=== PATIENT | male | born 1980 | race Caucasian/White ===

== ENCOUNTER 2017-09-11 01:55 | Inpatient (IN) | payer MEDICAID ==
[~2017-09-11] VITALS: Ht 190.5 cm; Wt 68.0 kg
[~2017-09-11 01:55] MED LIST: CLIN-79 PO; HYDR-569 PO; IBUP-1986 PO
[2017-09-11] MEDS ORDERED: TETanus/Pertussis (Acell)/Diphther VAC/PF (Tdap-Adult) 0.5ml syringe IMVAC ONE (04:00)
[2017-09-11] MEDS ORDERED: clindamycin-Cleocin 900mg/D5W 50 ML IV SCH ×2 (04:25→08:00)
[2017-09-11 04:59] LABS: BASOPHILS % (AUTO) 0.4 % (0-1); EOSINOPHILS # (AUTO) 0.2 X10'3 (0-0.9); EOSINOPHILS % (AUTO) 2.4 % (0-6); HEMATOCRIT 39.5 % (42.0-52.0); HEMOGLOBIN 13.2 g/dl (14.0-17.9); LYMPHOCYTES # (AUTO) 1.5 X10'3 (1.1-4.8); MEAN CORPUSCULAR HGB CONC 33.4 % (33.0-36.5); MEAN PLATELET VOLUME 8.4 FL (7.4-10.4); MONOCYTES # (AUTO) 0.7 X10'3 (0-0.9); MONOCYTES % (AUTO) 7.2 % (2-12); PLATELET COUNT 254 X10'3 (140-440); RED BLOOD COUNT 4.54 X10'6 (4.70-6.10); RED CELL DISTRIBUTION WIDTH 13.5 % (11.5-14.5); WHITE BLOOD COUNT 9.5 X10'3 (4.5-11.0)
[2017-09-11 05:14] LABS: ANION GAP 6 (8-16); BILIRUBIN,TOTAL 0.5 MG/DL (0.1-1.0); BLOOD UREA NITROGEN 12 MG/DL (7-18); CALCIUM 8.7 MG/DL (8.5-10.1); CHLORIDE 104 MMOL/L (99-107); POTASSIUM 4.3 MMOL/L (3.5-5.1); SODIUM 139 MMOL/L (135-145); TOTAL CARBON DIOXIDE 28.7 MMOL/L (24-32); TOTAL PROTEIN 7.9 G/DL (6.4-8.2); eGFR 84 ML/MIN
[2017-09-11 05:15] LABS: ALANINE AMINOTRANSFERASE 156 U/L (12-78); ALBUMIN 2.9 G/DL (3.4-5.0); ALBUMIN/GLOBULIN RATIO 0.6 (1.1-1.5); ALKALINE PHOSPHATASE 106 IU/L (46-116); ASPARTATE AMINO TRANSFERASE 80 U/L (10-37)
[2017-09-11 05:26] LABS: GLUCOSE 120 MG/DL (70-104)
[2017-09-11] MEDS ORDERED: magnesium 4gm in 100ml NS 100 ML IV PRN (09:10)
[2017-09-11] MEDS ORDERED: potassium Cl 40MEQ/NS 500ml 500 ML IV PRN ×2 (09:10)
[2017-09-11] MEDS ORDERED: magnesium hydroxide 30ml (MOM) UD suspension PO PRN (09:10)
[2017-09-11] MEDS ORDERED: mag hydrox/Alum hydrox/simeth 30ml oral suspension PO PRN (09:10)
[2017-09-11] MEDS ORDERED: magnesium Cl slow-release 64mg tablet PO PRN (09:10)
[2017-09-11] MEDS ORDERED: potassium Cl 20 mEq SR tablet PO PRN ×2 (09:10)
[2017-09-11] MEDS ORDERED: magnesium 2GM in 50ml NS 50 ML IV PRN (09:10)
[2017-09-11] MEDS ORDERED: morphine 2 MG/ML inj. syringe IV PRN (09:10)
[2017-09-11] MEDS: K and/or MAG REPLACEMENT MC SCH (09:10)
[2017-09-11] MEDS ORDERED: acetaminophen 325mg tablet PO PRN ×2 (09:10)
[2017-09-11] MEDS ORDERED: ondansetron/PF 4mg/2ml inj IV PRN (09:10)
[2017-09-11] MEDS: vancomycin/NS 1 GM ADD-VANTAGE 250 ML IV SCH ×2 (10:47→19:42)
[2017-09-11] MEDS: normal saline 1000ml 1,000 ML IV SCH ×3 (10:47→17:22)
[2017-09-11 11:34] LABS: HIV ANTIBODY 1&2 RAPID NON-REACTIVE (Neg)
[2017-09-11 11:50] LABS: CLARITY,URINE CLEAR (Clear); COLOR,URINE YELLOW (Yellow); GLUCOSE, URINE NEGATIVE (Neg); KETONES,URINE NEGATIVE (Neg); LEUKOCYTE ESTERASE ,URINE NEGATIVE (Neg); NITRITES, URINE NEGATIVE (Neg); OCCULT BLOOD,URINE NEGATIVE (Neg); PH,URINE 6.5 (4.8-8.0); PROTEIN,URINE 30 mg/dl (Neg)
[2017-09-11 11:55] LABS: UA COLLECTION TYPE URINAL
[2017-09-11 11:57] LABS: BACTERIA,URINE NONE SEEN /HPF (Neg); CAL OXALATE CRYSTALS 2+ /HPF (NEGATIVE); MUCUS STRANDS NONE SEEN /LPF (Neg); RBC,URINE 0-2 /HPF (0-2); SQUAMOUS EPITHELIAL CELL,UR FEW /LPF (FEW); WBC,URINE 0-4 /HPF (0-4)
[2017-09-11 12:11] LABS: URINE AMPHETAMINE SCREEN POSITIVE (Neg); URINE BARBITUATE SCREEN NEGATIVE (Neg); URINE BENZODIAZEPINES SCREEN NEGATIVE (Neg); URINE CANNABINOID SCREEN POSITIVE (Neg); URINE COCAINE SCREEN NEGATIVE (Neg); URINE METHADONE SCREEN NEGATIVE (Neg); URINE OPIATE SCREEN NEGATIVE (Neg); URINE PHENCYCLIDINE SCREEN NEGATIVE (Neg)
[2017-09-11] MEDS: clindamycin-Cleocin 900mg/D5W 50 ML IV SCH ×2 (13:35→22:16)
[2017-09-11] MEDS: piperacillin/tazo 3.375gm/50ml 50 ML IV SCH ×2 (15:29→21:22)
[2017-09-11 16:30] VITALS: BP 123/64
[2017-09-11] MEDS: HYDROcodone/acetaminophen 5mg/325mg tablet PO PRN ×2 (17:14→22:28)
[2017-09-11] MEDS: lactobacillus rhamnosus 10,000 MMU CELLS/CAPSULE PO SCH (17:14)
[2017-09-11 18:00] VITALS: BP 116/54
[2017-09-11 22:00] VITALS: BP 117/65
[2017-09-12] MEDS: piperacillin/tazo 3.375gm/50ml 50 ML IV SCH ×4 (02:29→21:25)
[2017-09-12] MEDS: HYDROcodone/acetaminophen 5mg/325mg tablet PO PRN ×4 (02:30→21:25)
[2017-09-12] MEDS: vancomycin/NS 1 GM ADD-VANTAGE 250 ML IV SCH ×4 (03:13→19:29)
[2017-09-12] MEDS: clindamycin-Cleocin 900mg/D5W 50 ML IV SCH ×3 (04:41→21:56)
[2017-09-12] MEDS: normal saline 1000ml 1,000 ML IV SCH ×3 (04:44→21:56)
[2017-09-12 06:06] LABS: BASOPHILS % (AUTO) 0.4 % (0-1); EOSINOPHILS # (AUTO) 0.3 X10'3 (0-0.9); EOSINOPHILS % (AUTO) 5.7 % (0-6); HEMATOCRIT 35.3 % (42.0-52.0); HEMOGLOBIN 11.9 g/dl (14.0-17.9); LYMPHOCYTES # (AUTO) 1.4 X10'3 (1.1-4.8); LYMPHOCYTES % (AUTO) 28.7 % (21-51); MEAN CORPUSCULAR HEMOGLOBIN 29.1 PG (27.0-31.0); MEAN CORPUSCULAR HGB CONC 33.8 % (33.0-36.5); MEAN CORPUSCULAR VOLUME 86.1 FL (78-98); MEAN PLATELET VOLUME 8.7 FL (7.4-10.4); MONOCYTES # (AUTO) 0.4 X10'3 (0-0.9); NEUTROPHILS # (AUTO) 2.7 X10'3 (1.8-7.7); NEUTROPHILS % (AUTO) 56.2 % (42-75); PLATELET COUNT 196 X10'3 (140-440); RED BLOOD COUNT 4.11 X10'6 (4.70-6.10); RED CELL DISTRIBUTION WIDTH 13.1 % (11.5-14.5); WHITE BLOOD COUNT 4.8 X10'3 (4.5-11.0)
[2017-09-12 06:27] VITALS: BP 91/42
[2017-09-12 06:32] LABS: ALANINE AMINOTRANSFERASE 128 U/L (12-78); ALBUMIN 2.3 G/DL (3.4-5.0); ALBUMIN/GLOBULIN RATIO 0.5 (1.1-1.5); ALKALINE PHOSPHATASE 86 IU/L (46-116); ANION GAP 8 (8-16); ASPARTATE AMINO TRANSFERASE 65 U/L (10-37); BILIRUBIN,TOTAL 0.4 MG/DL (0.1-1.0); BLOOD UREA NITROGEN 11 MG/DL (7-18); CALCIUM 8.1 MG/DL (8.5-10.1); CHLORIDE 107 MMOL/L (99-107); GLUCOSE 107 MG/DL (70-104); MAGNESIUM 1.7 MG/DL (1.5-2.4); PHOSPHORUS 4.3 MG/DL (2.3-4.5); POTASSIUM 4.4 MMOL/L (3.5-5.1); SODIUM 141 MMOL/L (135-145); TOTAL CARBON DIOXIDE 25.6 MMOL/L (24-32); TOTAL PROTEIN 6.9 G/DL (6.4-8.2); eGFR 84 ML/MIN
[2017-09-12] MEDS: K and/or MAG REPLACEMENT MC SCH (08:00)
[2017-09-12] MEDS: enoxaparin 40mg/0.4ml syringe SUBCUT SCH (09:00)
[2017-09-12] MEDS ORDERED: mupirocin 2% ointment 22GM TP STA (09:38)
[2017-09-12 10:00] VITALS: BP 113/58
[2017-09-12] MEDS ORDERED: VANCOMYCIN LEVEL IV ONE (10:30)
[2017-09-12] MEDS: lactobacillus rhamnosus 10,000 MMU CELLS/CAPSULE PO SCH ×2 (12:22→19:29)
[2017-09-12] MEDS: mupirocin 2% ointment 22GM TP SCH ×2 (16:46→21:27)
[2017-09-12 18:00] VITALS: BP 118/62
[2017-09-12 22:00] VITALS: BP 110/58
[2017-09-13] MEDS: piperacillin/tazo 3.375gm/50ml 50 ML IV SCH ×4 (02:18→20:25)
[2017-09-13] MEDS: HYDROcodone/acetaminophen 5mg/325mg tablet PO PRN ×3 (02:22→16:45)
[2017-09-13] MEDS: vancomycin/NS 1 GM ADD-VANTAGE 250 ML IV SCH ×3 (02:49→18:46)
[2017-09-13] MEDS: clindamycin-Cleocin 900mg/D5W 50 ML IV SCH ×3 (04:56→21:08)
[2017-09-13 06:00] VITALS: BP 98/60
[2017-09-13 06:13] LABS: BASOPHILS % (AUTO) 0.7 % (0-1); EOSINOPHILS # (AUTO) 0.2 X10'3 (0-0.9); EOSINOPHILS % (AUTO) 5.9 % (0-6); HEMATOCRIT 36.1 % (42.0-52.0); HEMOGLOBIN 12.2 g/dl (14.0-17.9); LYMPHOCYTES # (AUTO) 1.2 X10'3 (1.1-4.8); LYMPHOCYTES % (AUTO) 28.5 % (21-51); MEAN CORPUSCULAR HEMOGLOBIN 29.1 PG (27.0-31.0); MEAN CORPUSCULAR HGB CONC 33.7 % (33.0-36.5); MEAN CORPUSCULAR VOLUME 86.1 FL (78-98); MEAN PLATELET VOLUME 8.2 FL (7.4-10.4); MONOCYTES # (AUTO) 0.4 X10'3 (0-0.9); NEUTROPHILS # (AUTO) 2.4 X10'3 (1.8-7.7); NEUTROPHILS % (AUTO) 55.9 % (42-75); PLATELET COUNT 212 X10'3 (140-440); RED BLOOD COUNT 4.19 X10'6 (4.70-6.10); RED CELL DISTRIBUTION WIDTH 13.3 % (11.5-14.5); WHITE BLOOD COUNT 4.3 X10'3 (4.5-11.0)
[2017-09-13 06:37] LABS: ALBUMIN 2.4 G/DL (3.4-5.0); ANION GAP 4 (8-16); BILIRUBIN,TOTAL 0.4 MG/DL (0.1-1.0); BLOOD UREA NITROGEN 10 MG/DL (7-18); BUN/CREATININE RATIO 8.3 (5.4-32.0); CALCIUM 8.1 MG/DL (8.5-10.1); CHLORIDE 105 MMOL/L (99-107); GLUCOSE 92 MG/DL (70-104); MAGNESIUM 1.7 MG/DL (1.5-2.4); PHOSPHORUS 4.4 MG/DL (2.3-4.5); POTASSIUM 4.7 MMOL/L (3.5-5.1); SODIUM 138 MMOL/L (135-145); TOTAL CARBON DIOXIDE 29.1 MMOL/L (24-32); eGFR 68 ML/MIN
[2017-09-13 06:38] LABS: ALANINE AMINOTRANSFERASE 130 U/L (12-78); ALBUMIN/GLOBULIN RATIO 0.5 (1.1-1.5); ALKALINE PHOSPHATASE 86 IU/L (46-116); ASPARTATE AMINO TRANSFERASE 76 U/L (10-37)
[2017-09-13] MEDS: K and/or MAG REPLACEMENT MC SCH (08:00)
[2017-09-13] MEDS: mupirocin 2% ointment 22GM TP SCH ×2 (08:55→20:27)
[2017-09-13] MEDS: enoxaparin 40mg/0.4ml syringe SUBCUT SCH (08:55)
[2017-09-13] MEDS: lactobacillus rhamnosus 10,000 MMU CELLS/CAPSULE PO SCH ×2 (08:55→16:45)
[2017-09-13 10:00] VITALS: BP 109/46
[2017-09-13] MEDS: normal saline 1000ml 1,000 ML IV SCH ×2 (11:08→21:15)
[2017-09-13 11:13] LABS: HBSAG SCREEN Negative (Negative); HEP A AB, IGM Negative (Negative); HEP B CORE AB, IGM Negative (Negative); HEPATITIS C ANTIBODY >11.0 s/co ratio (0.0-0.9)
[2017-09-13] MEDS ORDERED: morphine 5 MG/ML injection IV PRN (16:57)
[2017-09-13] MEDS: nicotine 14mg patch - 24hr TD SCH (17:45)
[2017-09-13 18:00] VITALS: BP 107/59
[2017-09-13 22:00] VITALS: BP 115/51
[2017-09-14] MEDS: piperacillin/tazo 3.375gm/50ml 50 ML IV SCH (01:41)
[2017-09-14] MEDS: HYDROcodone/acetaminophen 5mg/325mg tablet PO PRN ×4 (01:46→21:34)
[2017-09-14] MEDS: vancomycin/NS 1 GM ADD-VANTAGE 250 ML IV SCH ×3 (02:43→19:22)
[2017-09-14] MEDS: clindamycin-Cleocin 900mg/D5W 50 ML IV SCH ×3 (04:34→21:26)
[2017-09-14 06:00] VITALS: BP 117/70
[2017-09-14 07:07] LABS: BASOPHILS % (AUTO) 0.7 % (0-1); EOSINOPHILS # (AUTO) 0.2 X10'3 (0-0.9); EOSINOPHILS % (AUTO) 5.9 % (0-6); HEMATOCRIT 37.7 % (42.0-52.0); HEMOGLOBIN 12.8 g/dl (14.0-17.9); MEAN CORPUSCULAR HEMOGLOBIN 29.2 PG (27.0-31.0); MEAN CORPUSCULAR VOLUME 86.1 FL (78-98); MEAN PLATELET VOLUME 8.1 FL (7.4-10.4); MONOCYTES # (AUTO) 0.2 X10'3 (0-0.9); MONOCYTES % (AUTO) 6.3 % (2-12); NEUTROPHILS # (AUTO) 1.9 X10'3 (1.8-7.7); NEUTROPHILS % (AUTO) 57.1 % (42-75); PLATELET COUNT 210 X10'3 (140-440); RED BLOOD COUNT 4.39 X10'6 (4.70-6.10); RED CELL DISTRIBUTION WIDTH 13.1 % (11.5-14.5); WHITE BLOOD COUNT 3.4 X10'3 (4.5-11.0)
[2017-09-14] MEDS: normal saline 1000ml 1,000 ML IV SCH ×2 (07:08→16:44)
[2017-09-14] MEDS: lactobacillus rhamnosus 10,000 MMU CELLS/CAPSULE PO SCH ×2 (07:20→16:47)
[2017-09-14 07:38] LABS: ALANINE AMINOTRANSFERASE 161 U/L (12-78); ALBUMIN 2.7 G/DL (3.4-5.0); ALBUMIN/GLOBULIN RATIO 0.5 (1.1-1.5); ALKALINE PHOSPHATASE 93 IU/L (46-116); ANION GAP 5 (8-16); ASPARTATE AMINO TRANSFERASE 109 U/L (10-37); BILIRUBIN,TOTAL 0.2 MG/DL (0.1-1.0); BLOOD UREA NITROGEN 11 MG/DL (7-18); BUN/CREATININE RATIO 9.2 (5.4-32.0); CALCIUM 8.6 MG/DL (8.5-10.1); CHLORIDE 106 MMOL/L (99-107); GLUCOSE 102 MG/DL (70-104); MAGNESIUM 1.9 MG/DL (1.5-2.4); PHOSPHORUS 3.4 MG/DL (2.3-4.5); POTASSIUM 4.6 MMOL/L (3.5-5.1); SODIUM 138 MMOL/L (135-145); TOTAL CARBON DIOXIDE 26.8 MMOL/L (24-32); TOTAL PROTEIN 7.7 G/DL (6.4-8.2); eGFR 68 ML/MIN
[2017-09-14] MEDS: K and/or MAG REPLACEMENT MC SCH (08:00)
[2017-09-14 10:00] VITALS: BP 115/68
[2017-09-14] MEDS: nicotine 14mg patch - 24hr TD SCH (10:50)
[2017-09-14] MEDS: mupirocin 2% ointment 22GM TP SCH ×2 (10:51→21:26)
[2017-09-14] MEDS: enoxaparin 40mg/0.4ml syringe SUBCUT SCH (10:51)
[2017-09-14 18:00] VITALS: BP 111/74
[2017-09-14] MEDS ORDERED: temazepam 15mg capsule PO PRN (18:55)
[2017-09-14 22:00] VITALS: BP 111/57
[2017-09-15] MEDS: vancomycin/NS 1 GM ADD-VANTAGE 250 ML IV SCH (02:35)
[2017-09-15] MEDS: normal saline 1000ml 1,000 ML IV SCH (02:37)
[2017-09-15] MEDS: clindamycin-Cleocin 900mg/D5W 50 ML IV SCH (04:49)
[2017-09-15] MEDS: K and/or MAG REPLACEMENT MC SCH (06:29)
[2017-09-15 06:30] VITALS: BP 150/84
[2017-09-15 06:48] LABS: BASOPHILS % (AUTO) 0.7 % (0-1); EOSINOPHILS # (AUTO) 0.2 X10'3 (0-0.9); EOSINOPHILS % (AUTO) 5.4 % (0-6); HEMATOCRIT 38.5 % (42.0-52.0); HEMOGLOBIN 12.9 g/dl (14.0-17.9); LYMPHOCYTES # (AUTO) 0.9 X10'3 (1.1-4.8); LYMPHOCYTES % (AUTO) 22.2 % (21-51); MEAN CORPUSCULAR HEMOGLOBIN 28.9 PG (27.0-31.0); MEAN CORPUSCULAR HGB CONC 33.5 % (33.0-36.5); MEAN CORPUSCULAR VOLUME 86.3 FL (78-98); MEAN PLATELET VOLUME 8.3 FL (7.4-10.4); MONOCYTES # (AUTO) 0.2 X10'3 (0-0.9); MONOCYTES % (AUTO) 5.5 % (2-12); NEUTROPHILS # (AUTO) 2.7 X10'3 (1.8-7.7); NEUTROPHILS % (AUTO) 66.2 % (42-75); PLATELET COUNT 198 X10'3 (140-440); RED BLOOD COUNT 4.46 X10'6 (4.70-6.10); RED CELL DISTRIBUTION WIDTH 13.3 % (11.5-14.5); WHITE BLOOD COUNT 4.2 X10'3 (4.5-11.0)
[2017-09-15 07:19] LABS: ALANINE AMINOTRANSFERASE 181 U/L (12-78); ALBUMIN 2.6 G/DL (3.4-5.0); ALBUMIN/GLOBULIN RATIO 0.5 (1.1-1.5); ALKALINE PHOSPHATASE 98 IU/L (46-116); ANION GAP 7 (8-16); ASPARTATE AMINO TRANSFERASE 125 U/L (10-37); BILIRUBIN,TOTAL 0.3 MG/DL (0.1-1.0); BLOOD UREA NITROGEN 11 MG/DL (7-18); CALCIUM 8.9 MG/DL (8.5-10.1); CHLORIDE 106 MMOL/L (99-107); GLUCOSE 109 MG/DL (70-104); MAGNESIUM 1.8 MG/DL (1.5-2.4); PHOSPHORUS 3.4 MG/DL (2.3-4.5); POTASSIUM 4.3 MMOL/L (3.5-5.1); SODIUM 140 MMOL/L (135-145); TOTAL CARBON DIOXIDE 26.9 MMOL/L (24-32); TOTAL PROTEIN 7.6 G/DL (6.4-8.2); eGFR 84 ML/MIN
[2017-09-15] MEDS: lactobacillus rhamnosus 10,000 MMU CELLS/CAPSULE PO SCH (07:58)
[2017-09-15] MEDS: mupirocin 2% ointment 22GM TP SCH (07:59)
[2017-09-15] MEDS: nicotine 14mg patch - 24hr TD SCH (07:59)
[2017-09-15] MEDS: enoxaparin 40mg/0.4ml syringe SUBCUT SCH (07:59)
[2017-09-15] MEDS ORDERED: cefazolin 1gm/NS 100mL 100 ML IV SCH (08:00)
[2017-09-15 10:01] VITALS: BP 129/65
[2017-09-15] MEDS: HYDROcodone/acetaminophen 5mg/325mg tablet PO PRN (11:06)
== END 2017-09-15 12:15 | disposition home or self-care (01) | DRG 383 ==
LOC: ER 01:55 → ED HOLD 09:08 → OBSVTOIN 09:08 → EDBEDREQ 15:29 → EDBEDREQTM 15:51 → ORTHO 4S 17:13
PROVIDERS: ADMIT Family Medicine; ATTEND Internal Medicine
DX: L03.116 Cellulitis of left lower limb (principal); F15.10 Other stimulant abuse, uncomplicated; B95.8 Unspecified staphylococcus as the cause of diseases classified elsewhere; F17.210 Nicotine dependence, cigarettes, uncomplicated; F12.90 Cannabis use, unspecified, uncomplicated; G89.29 Other chronic pain; M54.9 Dorsalgia, unspecified; Z59.0 Homelessness; Z68.1 Body mass index [BMI] 19.9 or less, adult; Z91.018 Allergy to other foods; Z91.010 Allergy to peanuts; Z91.013 Allergy to seafood; Z86.14 Personal history of Methicillin resistant Staphylococcus aureus infection
CPT/HCPCS: 36415; 73590; 80053; 80202; 80305; 81001; 83605; 83735; 84100; 85025; 86703; 86705; 86706; 86709; 86803; 87040; 87070; 87077; 87186; 87340; 90715; 93931; 96365; 97116; 97161; 99285; A6212; A6222; A6223; A6446; A6449; J0690; J1650; J2543; J3370; J3490; J7030

== ENCOUNTER 2018-03-04 03:18 | Emergency (ER) | payer MEDICAID, OTHER ==
[~2018-03-04] VITALS: Ht 188 cm; Wt 69.1 kg
[~2018-03-04 03:18] MED LIST changes: -CLIN-79 PO; -HYDR-569 PO
[2018-03-04 04:00] LABS: BASOPHILS % (AUTO) 0.5 % (0-1); EOSINOPHILS # (AUTO) 0.2 X10'3 (0-0.9); EOSINOPHILS % (AUTO) 5.2 % (0-6); HEMATOCRIT 42.2 % (42.0-52.0); HEMOGLOBIN 14.2 g/dl (14.0-17.9); LYMPHOCYTES % (AUTO) 43.7 % (21-51); MEAN CORPUSCULAR HEMOGLOBIN 29.6 PG (27.0-31.0); MEAN CORPUSCULAR HGB CONC 33.6 % (33.0-36.5); MEAN PLATELET VOLUME 8.9 FL (7.4-10.4); MONOCYTES # (AUTO) 0.4 X10'3 (0-0.9); MONOCYTES % (AUTO) 8.8 % (2-12); NEUTROPHILS # (AUTO) 1.9 X10'3 (1.8-7.7); NEUTROPHILS % (AUTO) 41.8 % (42-75); PLATELET COUNT 125 X10'3 (140-440); RED BLOOD COUNT 4.79 X10'6 (4.70-6.10); RED CELL DISTRIBUTION WIDTH 15.5 % (11.5-14.5); WHITE BLOOD COUNT 4.5 X10'3 (4.5-11.0)
[2018-03-04 04:11] LABS: INR 1.1 INR; PARTIAL THROMBOPLASTIN TIME 30 SECONDS (22-32); PROTHROMBIN TIME 11.8 SECONDS (9.0-12.0)
[2018-03-04 04:15] LABS: ALANINE AMINOTRANSFERASE 173 U/L (12-78); ALBUMIN 3.7 G/DL (3.4-5.0); ALBUMIN/GLOBULIN RATIO 0.9 (1.1-1.5); ALKALINE PHOSPHATASE 76 IU/L (46-116); ANION GAP 7 (8-16); ASPARTATE AMINO TRANSFERASE 82 U/L (10-37); BILIRUBIN,TOTAL 0.7 MG/DL (0.1-1.0); BLOOD UREA NITROGEN 9 MG/DL (7-18); CALCIUM 8.8 MG/DL (8.5-10.1); CHLORIDE 105 MMOL/L (99-107); GLUCOSE 81 MG/DL (70-104); POTASSIUM 3.9 MMOL/L (3.5-5.1); SODIUM 141 MMOL/L (135-145); TOTAL CARBON DIOXIDE 29.5 MMOL/L (24-32); TOTAL PROTEIN 7.9 G/DL (6.4-8.2); eGFR 84 ML/MIN
[2018-03-04 04:18] LABS: TROPONIN I < 0.04 NG/ML (0.0-0.05)
[2018-03-04 05:09] VITALS: BP 111/63
== END 2018-03-04 05:12 ==
LOC: ER 03:18 → EEVIPCON 03:18 → ER 05:12
DX: R51 Headache (principal); R07.89 Other chest pain; R06.02 Shortness of breath; R20.0 Anesthesia of skin; G89.29 Other chronic pain; F12.10 Cannabis abuse, uncomplicated; F15.10 Other stimulant abuse, uncomplicated; F11.10 Opioid abuse, uncomplicated; Z86.14 Personal history of Methicillin resistant Staphylococcus aureus infection; Z98.890 Other specified postprocedural states; Z59.0 Homelessness; Z91.010 Allergy to peanuts; Z79.899 Other long term (current) drug therapy
CPT/HCPCS: 36415; 70450; 71045; 80053; 82948; 84484; 85025; 85610; 85730; 93005; 99285

== ENCOUNTER 2020-01-11 20:19 | Emergency (ER) | payer MEDICAID, OTHER ==
[~2020-01-11] VITALS: Ht 189.2 cm; Wt 72.0 kg
[2020-01-11] MEDS ORDERED: PERM60CR19 TOP (21:06)
[2020-01-11 21:49] VITALS: BP 124/43
[2020-01-12] MEDS ORDERED: PERM60CR19 TOP (14:02)
== END 2020-01-11 21:50 | disposition home or self-care (01) ==
LOC: ER 20:20
DX: B86 Scabies (principal); G89.29 Other chronic pain; F12.90 Cannabis use, unspecified, uncomplicated; F15.90 Other stimulant use, unspecified, uncomplicated; F11.90 Opioid use, unspecified, uncomplicated; Z86.14 Personal history of Methicillin resistant Staphylococcus aureus infection; Z98.890 Other specified postprocedural states; Z59.0 Homelessness; Z91.010 Allergy to peanuts; Z91.018 Allergy to other foods; Z79.899 Other long term (current) drug therapy
CPT/HCPCS: 99283

== ENCOUNTER 2020-01-12 12:44 | Emergency (ER) | payer MEDICAID, OTHER ==
[~2020-01-12] VITALS: Ht 188 cm; Wt 77.3 kg
[~2020-01-12 12:44] MED LIST changes: +PERM60CR19 TOP
[2020-01-12 12:48] VITALS: BP 108/78
[2020-01-12] MEDS ORDERED: diphenhydrAMINE 2%/zinc acetate cream TP STA (13:51)
[2020-01-12] MEDS ORDERED: PERM60CR19 TOP (14:02)
== END 2020-01-12 14:20 | disposition home or self-care (01) ==
LOC: ER 12:45
DX: R21 Rash and other nonspecific skin eruption (principal); L29.9 Pruritus, unspecified; G89.29 Other chronic pain; F12.90 Cannabis use, unspecified, uncomplicated; F15.90 Other stimulant use, unspecified, uncomplicated; F11.90 Opioid use, unspecified, uncomplicated; Z86.14 Personal history of Methicillin resistant Staphylococcus aureus infection; Z72.89 Other problems related to lifestyle; Z59.0 Homelessness; Z91.018 Allergy to other foods; Z79.899 Other long term (current) drug therapy
CPT/HCPCS: 99283

== ENCOUNTER 2020-05-18 22:20 | Emergency (ER) | payer MEDICAID ==
[~2020-05-18] VITALS: Ht 188 cm; Wt 75.0 kg
[~2020-05-18 22:20] MED LIST changes: -PERM60CR19 TOP
[2020-05-18 22:25] VITALS: BP 118/76
[2020-05-18] MEDS ORDERED: ibuprofen tablet 400 MG TABLET PO ONE (23:05)
== END 2020-05-18 23:40 | disposition home or self-care (01) ==
LOC: ER 22:20
DX: M79.675 Pain in left toe(s) (principal); G89.29 Other chronic pain; Z86.14 Personal history of Methicillin resistant Staphylococcus aureus infection; Z98.890 Other specified postprocedural states; Z59.0 Homelessness; Z91.018 Allergy to other foods; Z79.899 Other long term (current) drug therapy
CPT/HCPCS: 73630; 99283

== ENCOUNTER 2023-04-21 13:58 | Emergency (ER) | payer MEDICAID ==
[~2023-04-21] VITALS: Ht 170.2 cm; Wt 75.0 kg
[2023-04-21] MEDS ORDERED: CefTRIAXone 2gm/D5W 50ml BAG 50 ML IV ONE (16:25)
[2023-04-21] MEDS ORDERED: naloxone 2mg/2ml inj IV STA (16:25)
[2023-04-21] MEDS ORDERED: normal saline 1000ml 1,000 ML IV ONE ×2 (16:25)
[2023-04-21 17:46] LABS: BASOPHILS # (AUTO) 0.1 X10'3 (0-0.2); BASOPHILS % (AUTO) 0.8 % (0-1); EOSINOPHILS # (AUTO) 0.1 X10'3 (0-0.9); EOSINOPHILS % (AUTO) 1.1 % (0-6); HEMATOCRIT 43.8 % (42.0-52.0); HEMOGLOBIN 14.2 g/dl (14.0-17.9); LYMPHOCYTES # (AUTO) 0.8 X10'3 (1.1-4.8); LYMPHOCYTES % (AUTO) 10.3 % (21-51); MEAN CORPUSCULAR HEMOGLOBIN 29.4 PG (27.0-31.0); MEAN CORPUSCULAR HGB CONC 32.5 g/dL (33.0-36.5); MEAN CORPUSCULAR VOLUME 90.4 FL (78-98); MEAN PLATELET VOLUME 8.1 FL (7.4-10.4); MONOCYTES # (AUTO) 0.4 X10'3 (0-0.9); MONOCYTES % (AUTO) 4.4 % (2-12); NEUTROPHILS # (AUTO) 6.8 X10'3 (1.8-7.7); NEUTROPHILS % (AUTO) 83.4 % (42-75); PLATELET COUNT 165 X10'3 (140-440); RED BLOOD COUNT 4.85 X10'6 (4.70-6.10); RED CELL DISTRIBUTION WIDTH 14.9 % (11.5-14.5); WHITE BLOOD COUNT 8.2 X10'3 (4.5-11.0)
--- NOTE | 2023-04-21 18:04 | NUR ---
good effect with the 4mg of narcan, provider is aware
[2023-04-21 18:06] LABS: ALANINE AMINOTRANSFERASE 94 U/L (12-78); ALBUMIN 3.6 G/DL (3.4-5.0); ALBUMIN/GLOBULIN RATIO 0.8 (1.1-1.5); ALKALINE PHOSPHATASE 68 IU/L (46-116); ANION GAP 7 (8-16); ASPARTATE AMINO TRANSFERASE 64 U/L (10-37); BILIRUBIN,TOTAL 0.7 MG/DL (0.1-1.0); BLOOD UREA NITROGEN 16 MG/DL (7-18); BUN/CREATININE RATIO 17.6 (10.0-20.0); CHLORIDE 103 MMOL/L (99-107); CREATININE 0.91 MG/DL (0.60-1.10); GLUCOSE 96 MG/DL (70-104); POTASSIUM 4.4 MMOL/L (3.5-5.1); SODIUM 137 MMOL/L (135-145); TOTAL CARBON DIOXIDE 26.8 MMOL/L (24-32); TOTAL PROTEIN 8.3 G/DL (6.4-8.2); eCRCL 97 ML/MIN; eGFR > 90 ML/MIN
[2023-04-21 18:11] LABS: ETHANOL < 10 MG/DL (<10)
[2023-04-21 18:32] LABS: BILIRUBIN,URINE NEGATIVE (Neg); CLARITY,URINE CLOUDY (Clear); COLOR,URINE YELLOW (Yellow); GLUCOSE, URINE NEGATIVE (Neg); KETONES,URINE NEGATIVE (Neg); LEUKOCYTE ESTERASE ,URINE NEGATIVE (Neg); NITRITES, URINE NEGATIVE (Neg); OCCULT BLOOD,URINE NEGATIVE (Neg); PH,URINE 5.5 (4.8-8.0); PROTEIN,URINE 30 mg/dl (Neg); UROBILINOGEN,URINE 0.2 E.U/dL (0.2-1.0)
[2023-04-21 18:37] LABS: UA COLLECTION TYPE NON-SPECIFIED
[2023-04-21 18:39] LABS: HYALINE CASTS 0-3 /LPF (NEGATIVE); MUCUS STRANDS FEW /LPF (Neg); SQUAMOUS EPITHELIAL CELL,UR MODERATE /LPF (FEW)
[2023-04-21 18:40] LABS: BACTERIA,URINE 2+ /HPF (Neg); RBC,URINE 0-2 /HPF (0-2); SPERM FEW /HPF (NEGATIVE)
[2023-04-21 18:47] LABS: URINE AMPHETAMINE SCREEN POSITIVE (Neg); URINE BARBITUATE SCREEN NEGATIVE (Neg); URINE BENZODIAZEPINES SCREEN NEGATIVE (Neg); URINE CANNABINOID SCREEN POSITIVE (Neg); URINE COCAINE SCREEN NEGATIVE (Neg); URINE METHADONE SCREEN NEGATIVE (Neg); URINE OPIATE SCREEN NEGATIVE (Neg); URINE PHENCYCLIDINE SCREEN NEGATIVE (Neg)
[2023-04-21] MEDS ORDERED: CEPH-585 PO (18:56)
[2023-04-21] MEDS ORDERED: cephalexin 500mg capsule PO ONE (19:00)
[2023-04-21 19:04] VITALS: BP 125/74; PULSE 72; RESP 18; O2SAT 94
== END 2023-04-21 19:10 | disposition home or self-care (01) ==
LOC: ER 13:58
DX: T40.2X1A Poisoning by other opioids, accidental (unintentional), initial encounter (principal); R42 Dizziness and giddiness; F19.10 Other psychoactive substance abuse, uncomplicated; N39.0 Urinary tract infection, site not specified; Y92.89 Other specified places as the place of occurrence of the external cause; G89.29 Other chronic pain; F12.90 Cannabis use, unspecified, uncomplicated; F15.90 Other stimulant use, unspecified, uncomplicated; Z72.89 Other problems related to lifestyle; Z86.14 Personal history of Methicillin resistant Staphylococcus aureus infection; Z59.00 Homelessness unspecified; Z91.010 Allergy to peanuts; Z79.2 Long term (current) use of antibiotics; Z79.899 Other long term (current) drug therapy
CPT/HCPCS: 36415; 70450; 71045; 80053; 80305; 80320; 81001; 83605; 84145; 84484; 85025; 87040; 87088; 96365; 96366; 96375; 99285; J0696; J2310; J7030

== ENCOUNTER 2025-06-27 15:41 | Emergency (ER) | payer MEDICAID ==
[~2025-06-27] VITALS: Ht 190.5 cm; Wt 77.0 kg
[2025-06-27 15:56] VITALS: BP 122/80; PULSE 96; RESP 19; TEMP 98.4; O2SAT 97
--- NOTE | 2025-06-27 16:11 | Physician Documentation ---
History of Present Illness ~ Chief Complaint: Cold, cough & congestion Stated Complaint: COLD Primary Medical Doctor: NONE HPI Patient is a 45-year-old male that presents to the emergency room for evaluation of right foot pain and cough cold congestion x1 week. Patient denies any other symptoms at this time. Medication Reconciliation Allergies: Coded Allergies: nut - unspecified (Verified Allergy, Intermediate, 06/27/25) Rash Uncoded Allergies: mushroom (Allergy, Unknown, vomiting, 12/28/13) got sick and threw up SEAFOOD (Adverse Reaction, Intermediate, NAUSEA & VOMITING, 05/30/12) PEANUTS (Adverse Reaction, Mild, RASH, 05/30/12) Scheduled Ibuprofen (Ibuprofen), 1 TAB PO Q8H Past Medical History Past Medical History: Pancreatitis, Chronic Back Pain, MRSA Abscess Past Surgical History: orthopedic surgeries Alcohol Use: Sober Drug Use: marijuana, methamphetamine Lives In: Homeless Occupation: disabled Physical Exam Vital Signs: Temperature: 98.4, Source: Temporal, Heart Rate: 96, Respiratory Rate: 19, BP: 122/80, Pulse Oximetry: 97, Weight: 77.000 Oxygen Flow Rate: 0 Progress Results/Orders Results/Orders Vital Signs 06/27/25 15:56 Temp 98.4 Pulse 96 Resp 19 B/P (MAP) 122/80 Pulse Ox 97 O2 Flow Rate 0 Departure Referrals: NO PRIMARY CARE PROVIDER (PCP) ANURADHA SRIVASTAVA Jun 27, 2025 16:11
[2025-06-28] MEDS ORDERED: DOXY100C43 PO (11:39)
== END 2025-06-27 17:39 | disposition left against medical advice (07) ==
LOC: ER 15:42
DX: M79.671 Pain in right foot (principal); R05.9 Cough, unspecified; R09.81 Nasal congestion
CPT/HCPCS: 99282

== ENCOUNTER 2025-06-28 07:33 | Emergency (ER) | payer MEDICAID ==
[~2025-06-28] VITALS: Ht 190.5 cm; Wt 76.6 kg
--- NOTE | 2025-06-28 08:35 | RADIOLOGY REPORT ---
CLINICAL INDICATION: LEFT KNEE PAIN TECHNIQUE: DI KNEE, COMP 4 VW MIN, left Comparison: None FINDINGS/IMPRESSION: : There is no evidence of acute fracture or dislocation. Small joint effusion.
[2025-06-28] MEDS: normal saline 1000ML IV soln IVB ONE (09:13)
[2025-06-28] MEDS: ketorolac trometh 15mg/ml vial 15 MG/ML ML IV ONE (09:13)
--- NOTE | 2025-06-28 09:23 | RADIOLOGY REPORT ---
CHEST RADIOGRAPH Indication: cough Technique: Single frontal view of the chest was obtained COMPARISON: DI CHEST,SINGLE VIEW on DOS: 04/21/23 FINDINGS: Lines and Tubes: None Lungs: Clear Pleura: No effusion. No pneumothorax. Cardiomediastinal contours: Unremarkable Bones: Unremarkable IMPRESSION: No acute disease. Indeterminate 0.4 cm radiopaque density overlying the mid trachea at the level of the thoracic inlet. This may represent a small foreign body or may be external to the patient. Clinical correlation advised.
--- NOTE | 2025-06-28 09:56 | VASCULAR REPORT ---
Left lower extremity venous duplex Clinical History: pain Comparison: None Technique: Duplex Doppler evaluation of the deep venous system of the left lower extremity from the common femoral vein to the popliteal vein including color Doppler and spectral/pulsed waveform analysis was performed. Findings: The common femoral vein demonstrates appropriate compressibility and waveform variability. There is compressibility/patency of the great saphenous vein at the proximal thigh. The femoral vein demonstrates appropriate compressibility and waveform variability. The deep femoral vein demonstrates appropriate compressibility and waveform variability. The popliteal vein demonstrates appropriate compressibility and waveform variability. There is normal compressibility at the tibioperoneal trunk. Impression: No left femoropopliteal venous thrombosis. Contralateral common femoral vein is patent.
[2025-06-28 10:42] LABS: MEAN PLATELET VOLUME 9.1 FL (7.4-10.4); RED CELL DISTRIBUTION WIDTH 14.9 % (11.5-14.5)
--- NOTE | 2025-06-28 10:51 | Physician Documentation ---
History of Present Illness General Chief Complaint: Cold, cough & congestion Stated Complaint: COLD SYMPTOMS Time Seen by MD: 08:19 Primary Medical Doctor: NONE Mode of Arrival: POV, Ambulatory History of Present Illness Initial Comments 45-year-old male complains of cough and congestion symptoms over the last three days he also states block proximally three days ago he fell off his skateboard and he is complaining of pain to the area above his left knee. Patient denies any fevers or chills he states he has had some green productive sputum. The patient's symptoms are mild and persistent. Medication Reconciliation Allergies: Coded Allergies: nut - unspecified (Verified Allergy, Intermediate, 06/28/25) Rash hydrocodone (Verified Adverse Reaction, Unknown, ANGRY, 06/28/25) Uncoded Allergies: mushroom (Allergy, Unknown, vomiting, 12/28/13) got sick and threw up SEAFOOD (Adverse Reaction, Intermediate, NAUSEA & VOMITING, 05/30/12) PEANUTS (Adverse Reaction, Mild, RASH, 05/30/12) Scheduled Doxycycline Monohydrate (Doxycycline Monohydrate), 100 MG PO BID Ibuprofen (Ibuprofen), 1 TAB PO Q8H Past Medical History Past Medical History: Pancreatitis, Chronic Back Pain, MRSA Abscess Past Surgical History: orthopedic surgeries Smoking: Cigarettes Alcohol Use: Sober Drug Use: marijuana, methamphetamine Lives In: Homeless Occupation: disabled Review of Systems All Other Systems at this time: Reviewed and Negative Physical Exam Physical Exam Vital Signs: Temperature: 98.7, Source: Oral, Heart Rate: 84, Respiratory Rate: 18, BP: 124/80, Pulse Oximetry: 100, Weight: 76.600 Oxygen Flow Rate: 0 Physical Exam VITALS: Reviewed and as above. GENERAL: Alert, no apparent distress. HEENT: Normocephalic, atraumatic, PERRL, EOMI, dry mucosa, no erythema RESPIRATORY: Slight rhonchi bilaterally, no respiratory distress. CHEST: No accessory muscle use, no retractions CV: Regular rate, rhythm, no edema, no murmur, No: JVD GI: Soft, non-tender, bowels sounds present, no rebound, guarding, or rigidity BACK: No CVA tenderness, or swelling MUSCULOSKELETAL: No deformities, no edema SKIN: The patient has a an area of erythema and warmth to the medial distal thigh on the left side proximally 10 cm above the patella he has also tender over this region in the region is a proximally 12 x 12 cm NEURO: Oriented x4, No motor or sensory deficit PSYCH: Normal mood and affect, no agitation Progress Results/Orders Results/Orders Orders - OHFAM MANDEL MD Knee, Complete (06/28/25 07:55) Vl Venous (06/28/25 08:56) Chest,Single View (06/28/25 08:58) Completed Orders - FAM ROWE MD Knee, Complete (06/28/25 07:55) Cbc/Diff (06/28/25 08:52) Procalcitonin (06/28/25 08:52) BMP (06/28/25 08:52) Normal Saline 1000ml (0.9% Sodium Chlori (06/28/25 08:55) Ketorolac Trometh 15mg/Ml Vial (Toradol (06/28/25 08:55) Vl Venous (06/28/25 08:56) Chest,Single View (06/28/25 08:58) Ampicillin/Sulbac 3gm/Ns 100ml (Unasyn 3 (06/28/25 10:21) Medications Received in ER Medications (Trade) Dose Ordered Sig/Matt Route PRN Reason Start Time Stop Time Status Last Admin Dose Admin (0.9% sodium chloride (NS) 1000ml IV soln) 1,000 ml ONCE ONCE IVB 06/28/25 08:55 06/28/25 08:56 DC 06/28/25 09:13 1,000 ML (Toradol injection) 15 mg ONCE ONCE IV 06/28/25 08:55 06/28/25 08:58 DC 06/28/25 09:13 15 MG Ampicillin Sodium/ Sulbactam Sodium 100 ml @ 200 mls/hr ONCE STAT IV 06/28/25 10:21 06/28/25 10:50 DC 06/28/25 11:08 200 MLS/HR Vital Signs 06/28/25 06/28/25 06/28/25 06/28/25 07:50 08:20 08:20 09:13 Temp 98.7 98.7 Pulse 101 84 Resp 16 19 18 18 B/P (MAP) 132/78 124/80 (95) Pulse Ox 98 100 O2 Flow Rate 0 0 06/28/25 10:30 Temp 98.7 Pulse 78 Resp 18 B/P (MAP) 137/87 (104) Pulse Ox 97 O2 Flow Rate 0 Laboratory Tests Test 06/28/25 09:54 White Blood Count 8.6 Red Blood Count 4.87 Hemoglobin 14.4 Hematocrit 43.3 Mean Corpuscular Volume 88.9 Mean Corpuscular Hemoglobin 29.5 Mean Corpuscular Hemoglobin Concent 33.2 Red Cell Distribution Width 14.9 H Platelet Count 196 Mean Platelet Volume 9.1 Neutrophils (%) (Auto) 78.2 H Lymphocytes (%) (Auto) 10.3 L Monocytes (%) (Auto) 7.5 Eosinophils (%) (Auto) 3.5 Basophils (%) (Auto) 0.5 Neutrophils # (Auto) 6.7 Lymphocytes # (Auto) 0.9 L Monocytes # (Auto) 0.6 Eosinophils # (Auto) 0.3 Basophils # (Auto) 0.0 CBC Comment Sodium Level 137 Potassium Level 4.3 Chloride Level 104 Carbon Dioxide Level 26.7 Anion Gap 6 L Blood Urea Nitrogen 12 Creatinine 0.89 Estimated GFR/1.73 m2 > 90 BUN/Creatinine Ratio 13.5 Glucose Level 81 Calcium Level 8.5 Albumin 3.2 L Procalcitonin < 0.05 Chemistry Comments EKG/XRAY/CT/US/VASC/MRI Chest X-Ray : Additional Comments Patient: AKANKSHA CORTEZ Medical Record: [id number] [facility] 1980, Age: 45 Sex: Male Location: ER Patient Status: REG ER Service Date/Time: 06/28/25857 Ordering Physician: FAM ROWE MD Exam: CHEST,SINGLE VIEW CHEST RADIOGRAPH Indication: cough Technique: Single frontal view of the chest was obtained COMPARISON: DI CHEST,SINGLE VIEW on DOS: 04/21/23 FINDINGS: Lines and Tubes: None Lungs: Clear Pleura: No effusion. No pneumothorax. Cardiomediastinal contours: Unremarkable Bones: Unremarkable IMPRESSION: No acute disease. Indeterminate 0.4 cm radiopaque density overlying the mid trachea at the level of the thoracic inlet. This may represent a small foreign body or may be external to the patient. Clinical correlation advised. Electronically Signed by:JOON NUGENT MD Date & Time: 06/28/25920 Dictated by: JOON NUGENT MD Dictation date and time: 06/28/25920 Primary Care Provider: NO PRIMARY CARE PROVIDER cc: FAM ROWE MD ~ Vascular : Vascular Study: lower extremity venous Impression Patient: AKANKSHA CORTEZ Medical Record: [id number] [facility] 1980, Age: 45 Sex: M Location: ER Patient Status: [facility] ER Service Date/Time: 06/28/25855 Ordering Physician: FAM ROWE MD Exam Name: VENOUS Technologist: Left lower extremity venous duplex Clinical History: pain Comparison: None Technique: Duplex Doppler evaluation of the deep venous system of the left lower extremity from the common femoral vein to the popliteal vein including color Doppler and spectral/pulsed waveform analysis was performed. Findings: The common femoral vein demonstrates appropriate compressibility and waveform variability. There is compressibility/patency of the great saphenous vein at the proximal thigh. The femoral vein demonstrates appropriate compressibility and waveform variability. The deep femoral vein demonstrates appropriate compressibility and waveform variability. The popliteal vein demonstrates appropriate compressibility and waveform variability. There is normal compressibility at the tibioperoneal trunk. Impression: No left femoropopliteal venous thrombosis. Contralateral common femoral vein is patent. Dictated by:JOON NUGENT MD Dictation date and time:06/28/25952 Electronically Signed by: JOON NUGENT MD Date and Time: 06/28/25952 Transcribed: [facility] Transcribed: NO PRIMARY CARE PROVIDER~ cc: JOON NUGENT MD; FAM ROWE MD ~ Departure Time of Disposition: 11:38 Impression: Primary Impression: Acute bronchitis Qualified Codes: J20.9 - Acute bronchitis, unspecified Additional Impression: Cellulitis Qualified Codes: L03.116 - Cellulitis of left lower limb Discharge Instructions: Cellulitis, Adult, [id number], Upper Respiratory Infection, Adult Additional Instructions: Follow up with your healthcare providers soon as possible, return for worsening of your symptoms Referrals: NO PRIMARY CARE PROVIDER (PCP) Prescriptions Doxycycline Monohydrate (Doxycycline Monohydrate) 100 Mg Capsule 100 MG PO BID, #20 CAP may sub doxycycline hyclate Prov: FAM ROWE MD 06/28/25 FAM ROWE MD Jun 28, 2025 10:51
[2025-06-28 11:00] LABS: CREATININE 0.89 MG/DL (0.60-1.10); TOTAL CARBON DIOXIDE 26.7 MMOL/L (24-32); eCRCL 112 ML/MIN; eGFR > 90 ML/MIN
[2025-06-28] MEDS: ampicillin/sulbac 3gm/NS 100ml 100 ML IV STA (11:08)
[2025-06-28] MEDS ORDERED: DOXY100C43 PO (11:39)
[2025-06-28 11:57] VITALS: BP 112/70; PULSE 77; RESP 16; TEMP 98; O2SAT 95
== END 2025-06-28 11:58 | disposition home or self-care (01) ==
LOC: ER 07:34
DX: J20.9 Acute bronchitis, unspecified (principal); L03.116 Cellulitis of left lower limb; F12.90 Cannabis use, unspecified, uncomplicated; F15.90 Other stimulant use, unspecified, uncomplicated; F10.90 Alcohol use, unspecified, uncomplicated; F17.210 Nicotine dependence, cigarettes, uncomplicated; Z88.5 Allergy status to narcotic agent; Z91.010 Allergy to peanuts; Z91.018 Allergy to other foods
CPT/HCPCS: 36415; 71045; 73564; 80048; 84145; 85025; 93971; 96361; 96365; 96375; 99285; J0295; J1885; J7030

== ENCOUNTER 2025-08-03 13:14 | Emergency (ER) | payer MEDICAID ==
[~2025-08-03] VITALS: Ht 188 cm; Wt 82.3 kg
[2025-08-03] MEDS ORDERED: GUAI600T45 PO (13:33)
[2025-08-03] MEDS ORDERED: BENZ-38 PO (13:33)
--- NOTE | 2025-08-03 13:34 | Physician Documentation ---
History of Present Illness ~ Stated Complaint: COLD Time Seen by MD: 13:16 OK to notify your PCP?: Yes Primary Medical Doctor: NONE Source: patient Mode of Arrival: POV Exam Limitations: no limitations HPI 45-year-old male who is here with cough, runny nose and mild left ear pain that started yesterday. He states he is in a program right now to where he is unable to take any medication unless it is prescribed. He also wanted to be seen to make sure that he does not have any symptoms of something that has contagious. He denies fever, chills, sore throat, shortness of breath, chest pain, abdominal pain, nausea, lower extremity edema. Medication Reconciliation Allergies: Coded Allergies: nut - unspecified (Verified Allergy, Intermediate, 06/28/25) Rash hydrocodone (Verified Adverse Reaction, Unknown, ANGRY, 06/28/25) Uncoded Allergies: mushroom (Allergy, Unknown, vomiting, 12/28/13) got sick and threw up SEAFOOD (Adverse Reaction, Intermediate, NAUSEA & VOMITING, 05/30/12) PEANUTS (Adverse Reaction, Mild, RASH, 05/30/12) Scheduled Ibuprofen (Ibuprofen), 1 TAB PO Q8H Past Medical History Past Medical History: Pancreatitis, Chronic Back Pain, MRSA Abscess Past Surgical History: orthopedic surgeries Alcohol Use: Sober Drug Use: marijuana, methamphetamine Lives In: Homeless Occupation: disabled Review of Systems All Other Systems at this time: Reviewed and Negative Physical Exam Physical Exam General Appearance: Alert, WD/WN. NAD. HEENT: NCAT, PERRL, EOMI. Scarring at left and right TM consistent with history of ear tubes, no bulging, retraction, erythema. No tenderness over mastoid or tragus. No pain with traction of the pinna. Posterior pharyngeal wall mild erythema no exudate, uvula midline. Neck: Supple, trachea midline. No cervical lymphadenopathy. Cardiovascular: RRR. No m/r/g. Lungs: CTAB. Breathing unlabored. no coughing observed Extremities: Normal inspection. No edema. Skin: Warm/dry, normal color Neurological: Alert and oriented x4, normal gait. Psychiatric: Affect congruent with mood. Medical Decision Making Additional information obtaine: N/A Findings n/a Differential Dx:Considerations: Include: Allergic rhinitis, Influenza, Otitis media, Peritonsillar abscess, Pharyngitis-Diphtheria, Pharyngitis-Streptoccal, Pharyngitis-Viral, Pneumonia, Pnuemonitis, Sinusitis, URI, Other Differential Diagnosis Patient's vital signs are normal he is afebrile oxygen saturation is within normal limits. His lung exam is normal. Outside of a scarring on his TM I do not appreciate any abnormalities and certainly no acute findings. I suspect his symptoms are due to the common cold. We discussed conservative management with Tessalon Perles, fluids, rest. Departure Time of Disposition: 13:31 Disposition: HOME / SELF CARE / HOMELESS Impression: Primary Impression: Ear pain, left Additional Impression: Cough Qualified Codes: R05.1 - Acute cough Condition: Stable Discharge Instructions: General Discharge Instructions Additional Instructions: Findings consistent with common cold however if you experience worsening of your symptoms, shortness of breath or any other concerning symptoms return to the ER. I sent a prescription for Tessalon Perles to your pharmacy as well as Mucinex. Referrals: NO PRIMARY CARE PROVIDER (PCP) Prescriptions Benzonatate* (Benzonatate*) 100 Mg Capsule 1-2 CAP PO Q8H for cough for 10 Days, #30 CAP Prov: EILZABETH MENDOZA 08/03/25 Guaifenesin (Mucinex) 600 Mg Tablet.sa 1 TAB PO Q12H for cough for 10 Days, #20 TAB 0 Refills Prov: ELIZABETH MENDOZA 08/03/25 Education Educated: Patient Educated regarding: diagnosis, treatment, need for follow up Signature Scribe Signature: x Attestation: ELIZABETH Kramer Aug 03, 2025 13:34
[2025-08-03 13:58] VITALS: BP 131/74; PULSE 85; RESP 17; TEMP 98.2; O2SAT 96
== END 2025-08-03 13:57 | disposition home or self-care (01) ==
LOC: ER 13:15
DX: R05.9 Cough, unspecified (principal); H92.02 Otalgia, left ear; G89.29 Other chronic pain; F12.90 Cannabis use, unspecified, uncomplicated; F15.90 Other stimulant use, unspecified, uncomplicated; Z86.14 Personal history of Methicillin resistant Staphylococcus aureus infection; Z88.5 Allergy status to narcotic agent; Z91.018 Allergy to other foods; Z87.19 Personal history of other diseases of the digestive system; Z79.899 Other long term (current) drug therapy; Z98.890 Other specified postprocedural states
CPT/HCPCS: 99283